=== PATIENT | male | born 1960 | race Caucasian/White ===

== ENCOUNTER → 2017-01-21 | Outpatient (REF) | payer BC | LOC: M LAB REF 12:41 | PROVIDERS: ATTEND Ophthalmology | DX: D23.11 Other benign neoplasm of skin of right eyelid, including canthus (principal) ==

== ENCOUNTER 2018-11-14 13:17 | Emergency (ER) | payer BC ==
[~2018-11-14] VITALS: Ht 198.1 cm; Wt 110.4 kg
[2018-11-14] MEDS ORDERED: CIPR-249 PO (13:29)
[2018-11-14] MEDS ORDERED: SYNT175T2 PO (13:29)
[2018-11-14] MEDS ORDERED: LISI-538 PO (13:29)
[2018-11-14] MEDS ORDERED: FLOM0.4C39 PO (13:29)
[2018-11-14] MEDS ORDERED: FLAG500T PO (14:33)
[2018-11-14 14:53] VITALS: BP 121/83
--- NOTE | 2018-11-15 23:18 | CR ---
DATE OF CONSULTATION: 11/14/2018 REASON FOR CONSULTATION: Possible appendicitis. HISTORY OF PRESENT ILLNESS: The patient is 58-year-old male, lives up near [place], who has had intermittent abdominal pains for the past 2 weeks. He was initially treated for prostatitis with antibiotics about 10 days with the antibiotics pain went away. When they stopped within 2 days, the pains return, very severe. He went back to his PCP, was started back on antibiotics 2 days ago and the pain has subsided again. He also received a CT scan this morning up in [place] that revealed acute appendicitis so he was transferred here for evaluation. When I saw him in the emergency room (ER), he had zero pain both that he described and on palpation. He ran four miles this morning, has no fevers or chills, tolerating food and has no complaints whatsoever. Currently, he has been on the antibiotic, Cipro, for last 2 days. He has another about 6 days to go. He thinks he has never had any problems in the past. Denies any fevers or chills. No problems with urinating or bowel movements, no other complaints. PAST MEDICAL HISTORY: 1. Hypothyroidism. 2. Hypertension. 3. Hyperlipidemia. PAST SURGICAL HISTORY: Bilateral inguinal hernia repairs. ALLERGIES: None. HOME MEDICATIONS: Please see [facility] REVIEW OF SYSTEMS: Per positives and negatives as stated in the history of present illness. SOCIAL HISTORY: Denies drug, alcohol or tobacco abuse. FAMILY HISTORY: Noncontributory. PHYSICAL EXAMINATION: General: Alert and oriented x3. No acute stress. Vitals: Temperature 93, pulse 67, respirations 18, blood pressure 128/70, pulse oximetry 97% room air. HEENT: Pupils equal, round, react to light and accommodation. Heart: S1-S2 regular rate and rhythm. Lungs: Clear to auscultation bilaterally. Abdomen: Soft, nontender, nondistended. No ventral hernias. Extremities: No clubbing, cyanosis or edema. Labs were obtained outpatient up in [place]. White count was around 7. IMAGING: He had a CT abdomen, pelvis done without contrast that showed acute appendicitis. I have reviewed the images here with one of our radiologist who agrees that there appears to be some mild inflammation near the tip of the appendix possible contained perforation that is abutting the duodenum. No signs of any inflammation in the colon or the terminal ileum or along the base the appendix. No signs of any appendicolith. ASSESSMENT/PLAN: The patient is 58-year-old male with possible history of a ruptured appendicitis, that could have been some time within the last couple weeks. This time there is no fluid cavity large enough to be drained. He has been tolerating by mouth antibiotics well. I gave him the option of surgery today versus repeat imaging with contrast to get a better picture of the possible abscess formation versus continuing with by mouth antibiotics and discussed possible surgery in a couple weeks. At this point, since he is completely asymptomatic, plan is to have him go home, will add Flagyl for 7 days to his Cipro. He will follow me in the office 2 days after that is completed to see how he was feeling. If he still doing well, will repeat a CT in 2 weeks and possibly do an elective appendectomy in about 4 weeks. If his symptoms return again, then we will discuss surgery marginally. All of his questions were answered and he will be discharged from the emergency room.
[2018-11-28] MEDS ORDERED: ZANT300T9 PO (13:38)
== END 2018-11-14 14:57 | disposition home or self-care (01) ==
LOC: M ED 13:17
DX: K37 Unspecified appendicitis (principal); E86.0 Dehydration; I10 Essential (primary) hypertension; E03.9 Hypothyroidism, unspecified; K21.9 Gastro-esophageal reflux disease without esophagitis; Z79.899 Other long term (current) drug therapy; Z79.890 Hormone replacement therapy; Z87.891 Personal history of nicotine dependence

== ENCOUNTER → 2018-11-30 | Outpatient (CLI) | payer BC ==
[~2018-11-30] MED LIST: CIPR-249 PO; FLAG500T PO; FLOM0.4C39 PO; ISOVUE-370 76% 100ML VIAL (Q9967) As Ordered ONE; LISI-538 PO; SYNT175T2 PO; ZANT300T9 PO
--- NOTE | 2018-11-30 10:07 | REP ---
CT of the abdomen and pelvis with IV contrast, without bowel contrast, stat request: Clinical history states acute appendicitis with perforation and localized peritonitis with abscess. There are no images from comparison studies available, however, there is a transcribed report of a prior study dated 11/14/2018 that describes right lower quadrant. Extensive inflammatory changes and an enlarged appendix consistent with appendicitis. The visualized lung arana demonstrate discoid atelectasis in the left lower lobe. There are no pleural effusions. The hepatic parenchyma is homogeneous. The gallbladder, pancreas, spleen, adrenals, kidneys and abdominal aorta are unremarkable. There is no ascites. There is no bowel distension or obstruction. There is a small fat-containing umbilical hernia. Pelvis: There are multiple surgical clips in the right l inguinal area. There is a small fat-containing right inguinal hernia. There is wall thickening of the appendix and the appendix is enlarged measuring 9.5 mm proximally and 13 mm at the appendiceal tip. There is a small focal zone of mesenteric inflammation at the tip of the appendix. There is no focal fluid collection to suggest abscess. There is no pneumoperitoneum. There is no ascites. The bladder is unremarkable. There are scattered diverticula in the descending colon and sigmoid colon. There is no CT evidence of acute diverticulitis. Impression: Findings are compatible with appendicitis. There is no periappendiceal fluid collection or abscess. There is a small focal zone of mesenteric inflammation at the tip of the appendix. Electronically Signed by Ludin Gibson MD 11/30/2018 09:58 A
== END ==
LOC: M RAD 08:35
PROVIDERS: ATTEND Surgery
DX: K35.33 Acute appendicitis with perforation, localized peritonitis, and gangrene, with abscess (principal)

== ENCOUNTER 2018-12-05 05:49 | Day surgery (SDC) | payer BC ==
[~2018-12-05] VITALS: Ht 198.1 cm; Wt 112.0 kg
[~2018-12-05 05:49] MED LIST changes: -ISOVUE-370 76% 100ML VIAL (Q9967) As Ordered ONE
[2018-12-05] MEDS ORDERED: LR 1,000 ML IV ONE (06:00)
[2018-12-05] MEDS ORDERED: PROPOFOL 200 MG/20 ML VIAL As Ordered ONE (06:55)
[2018-12-05] MEDS ORDERED: dexameTHASONE 4 MG/ML 1ML VIAL (J1100) As Ordered ONE (06:55)
[2018-12-05] MEDS ORDERED: ONDANSETRON 4MG/2ML VIAL (J2405) As Ordered ONE (06:55)
[2018-12-05] MEDS ORDERED: ROCURONIUM BROMIDE 50 MG/5 ML VIAL As Ordered ONE ×2 (06:55→07:48)
[2018-12-05] MEDS ORDERED: LIDOCAINE 2% INJ 100 MG/5 ML SDV (FOR ANES.) As Ordered ONE (06:56)
[2018-12-05] MEDS ORDERED: BUPIVACAINE/EPIN 0.25% 30 ML VIAL As Ordered ONE (06:57)
[2018-12-05] MEDS ORDERED: fentaNYL 250 MCG/5 ML INJECTION (J3010) As Ordered ONE (07:00)
[2018-12-05] MEDS ORDERED: MIDAZOLAM INJ 2 MG/2 ML VIAL (J2250) As Ordered ONE (07:00)
[2018-12-05] MEDS ORDERED: ACETAMINOPHEN 1000MG 100ML IV BTL (OFIRMEV) (J0131 PER 10MG) As Ordered ONE (07:47)
[2018-12-05] MEDS ORDERED: SUGAMMADEX SODIUM 500 MG/5 ML VIAL (BRIDION) As Ordered ONE (07:52)
[2018-12-05] MEDS ORDERED: KETOROLAC 60 MG/2 ML VIAL (J1885) As Ordered ONE (08:05)
[2018-12-05] MEDS: fentaNYL 100 MCG/2 ML INJECTION (J3010) IV PRN ×4 (09:20→09:35)
[2018-12-05] MEDS ORDERED: MORPHINE 10 MG/ML 1ML VIAL (J2270) IV PRN (09:30)
[2018-12-05] MEDS ORDERED: ONDANSETRON 4MG/2ML VIAL (J2405) IV PRN (09:30)
[2018-12-05] MEDS ORDERED: NORCO, ANEXSIA 5/325MG TABLET (HYDROcodone/ACETAMINOPHEN) PO PRN (09:30)
[2018-12-05] MEDS ORDERED: PERCOCET 5MG/325MG TAB PO PRN (09:30)
[2018-12-05] MEDS ORDERED: LR 1,000 ML IV SCH (09:30)
[2018-12-05] MEDS ORDERED: METOCLOPRAMIDE INJ 10MG/2ML VIAL (J2765) IV PRN (09:30)
[2018-12-05 10:50] VITALS: BP 136/94
--- NOTE | 2018-12-05 21:09 | RO ---
DATE OF PROCEDURE: 12/05/2018 PREOPERATIVE DIAGNOSIS: Appendicitis. POSTOPERATIVE DIAGNOSIS: Appendicitis. OPERATIVE PROCEDURE: Laparoscopic appendectomy. SURGEON: Ludin Hdez MD [employer] SECURITY ARCHITECT: None. ANESTHESIA: general. ESTIMATED BLOOD LOSS: 5 mL COMPLICATIONS: None. INDICATIONS FOR PROCEDURE: The patient is a 58-year-old male who presented with chronic appendicitis for about a month to the emergency room; found have significant inflammation at the tip next to the duodenum. Since his labs and vitals were normal and he had zero pain at that time, recommendation was to hold off on surgery for a few weeks to allow the inflammation to subside. He is now here today for laparoscopic appendectomy. Risks and benefits of the procedure not limited to but including bleeding, infection, hernia formation, damage to surrounding structure, need for further surgery were discussed in detail with the patient and informed was obtained and the procedure was planned. DESCRIPTION OF PROCEDURE The patient was brought back to operating room four. After sufficient sedation the abdomen was sterilely prepped and draped. Next, a time-out was done to confirm proper patient and proper procedure. Following that a 5 mm incision was made in the left lower quadrant. Veress needle was inserted and the abdomen was insufflated to 50 mmHg. Next, the Veress needle was removed and a 5 mm OptiVu port was used to gain access to the abdomen. Once the abdomen was entered another 8 mm port was placed supraumbilically in the midline, and another 5 mm port suprapubically in the midline. The cecum was identified, elevated up towards the right shoulder. The small bowel was gently removed from the right lower quadrant revealing the base of the appendix. The appendix was running retrocolic and medial to the colon heading superiorly up towards the duodenum. I was able to dissect it starting from the base heading proximal. I ended up placing another 5 mm port in the right upper quadrant t help with retraction of the cecum and the terminal ileum. After doing so I was able to use the Enseal to dissect all way up to the tip and freed it up from its attachments. Once this was all completed I was able to place two PDS Endoloops around the base to ligate it; amputated the base of the appendix, placed it in a 5 mm EndoCatch bag and brought it out through this supraumbilical port site. Once the appendix was removed, the abdomen was desufflated. Skin incisions were closed with #4-0 Vicryl subcuticular sutures. The abdomen was cleaned and dried. Steri-Strips, 4x4 and tape were applied thus ending the procedure.
--- NOTE | 2018-12-06 20:26 | ECGEPIP ---
[facility] Test Date: 2018-12-05 Pat Name: FLORIDALMA HEAD Department: Room: - Gender: Male Surveillance Investigator: Samira : 1960 Requested By: MERRY Hoskins Order Number: [id number] Reading MD: Sheldon Sanderson Measurements Intervals [place] Rate: 54 P: 61 AR: 206 QRS: 65 QRSD: 104 T: 51 QT: 422 QTc: 401 Interpretive Statements SINUS BRADYCARDIA INCOMPLETE RIGHT BUNDLE BRANCH BLOCK No prior ECG available for comparison. Electronically Signed on 12-06-2018 20:26:02 EDT by Sheldon Sanderson
== END 2018-12-05 11:06 | disposition home or self-care (01) ==
LOC: M SDC 05:49
PROVIDERS: ATTEND Surgery
DX: K35.890 Other acute appendicitis without perforation or gangrene (principal); I10 Essential (primary) hypertension; E03.9 Hypothyroidism, unspecified; K21.9 Gastro-esophageal reflux disease without esophagitis; Z79.899 Other long term (current) drug therapy; Z87.891 Personal history of nicotine dependence
CPT/HCPCS: 44970; 88302; 93005; J0131; J0690; J1100; J1885; J2250; J2405; J2765; J3010

== ENCOUNTER → 2022-03-05 | Outpatient (CLI) | payer BC ==
[~2022-03-05] MED LIST changes: +ISOVUE-370 76% 100ML VIAL As Ordered ONE; -LISI-538 PO; +LISI20TA33 PO
== END ==
LOC: M RAD 10:52
PROVIDERS: ATTEND Internal Medicine Cardiovascular Disease
DX: I71.9 Aortic aneurysm of unspecified site, without rupture (principal)